=== PATIENT | female | born 2000 | race Caucasian/White ===

== ENCOUNTER → 2020-11-19 | Outpatient (CLI) | payer BC | END | disposition home or self-care (01) | LOC: LABWHC1 11:19 | PROVIDERS: ATTEND Obstetrics & Gynecology | DX: N91.2 Amenorrhea, unspecified (principal) | CPT/HCPCS: 36415; 84702 ==

== ENCOUNTER → 2021-01-11 | Outpatient (CLI) | payer OTHER ==
--- NOTE | 2021-01-11 15:02 | US ---
EXAMINATION TYPE: Transabdominal DATE OF EXAM: 01/11/2021 2:15 PM COMPARISON: NONE CLINICAL HISTORY: Z36.87 confirm dates. Pt not having any pain, a lot of vomiting. Positive ECG test. EXAM PERFORMED: Transabdominal (TA) EXAM MEASUREMENTS: GESTATIONAL AGE / DATING Physician Established: (13 weeks/3 days) EDC: 07/16/2021 Dates by LMP: (13 weeks/3 days) EDC: 07/16/2021 Dates by First Scan: No previous this is first scan Dates by Current Scan for: (13 weeks/5 days) EDC: 07/14/2021 MATERNAL ANATOMY Uterus: 12.1x9.2x9.2cm Right Ovary: Not seen Left Ovary: Very large complex mass. Shadowing, echogenic material seen within with no blood flow. 9. 6x6.1x10.5cm Post CDS / Adnexa: Left adnexa/ left ovary mass. Presence of free fluid: No Presence of corpus luteal cyst: ?? Left Presence of subchorionic bleed: No GESTATION / SURVEY CRL: 8.2 (14 weeks/1 days) Heart Rate: 161 bpm Rhythm: Normal IUP: Viable IUP Nuchal Translucency 10-14wks (normal less than 3mm): Not able to measure Age Appropriate Anatomy Date of LMP: 10/09/2020 Beta HcG (if available): N/A Single live intrauterine gestation is present as pole and gestational sac seen. Yolk sac not cl early identified. No free fluid in pelvic cul-de-sac. Right ovary not clearly identified. There is ab normal left adnexal or ovarian cystic lesion measuring 10.5 cm long axis with lobulated contour and i nternal peripheral solid component, papillary projections seen image [id number]. IMPRESSION: As above. Confirmation of single live intrauterine gestation. Mean crown-rump length 8.2 cm corresponding to 14 week 1 day old fetus. Abnormal left ovarian cystic lesion. O-RADS 4 intermediate risk. Advise referral to a gynecology onco logy specialist. Consider MRI evaluation.
== END | disposition home or self-care (01) ==
LOC: RADUSWWP 13:39
PROVIDERS: ATTEND Obstetrics & Gynecology
DX: O34.81 Maternal care for other abnormalities of pelvic organs, first trimester (principal); N83.8 Other noninflammatory disorders of ovary, fallopian tube and broad ligament; Z3A.14 14 weeks gestation of pregnancy
CPT/HCPCS: 76801

== ENCOUNTER → 2021-04-18 | Outpatient (CLI) | payer OTHER ==
[2021-04-18 15:01] LABS: HCT 36.9 % (37.2-46.3); HGB 11.6 g/dL (12.0-15.0); MCH 29.9 pg (27.0-32.0); MCHC 31.4 g/dL (32.0-37.0); MCV 95.1 fL (80.0-97.0); Mean Platelet Volume 11.4 fL (9.5-12.2); Platelet Count 226 X 10*3/uL (140-440); RBC 3.88 X 10*6/uL (4.10-5.20); WBC 8.34 X 10*3/uL (4.50-10.00)
== END | disposition home or self-care (01) ==
LOC: LABWHC1 08:37
PROVIDERS: ATTEND Obstetrics & Gynecology
DX: Z34.02 Encounter for supervision of normal first pregnancy, second trimester (principal); Z3A.00 Weeks of gestation of pregnancy not specified
CPT/HCPCS: 36415; 82950; 85027

== ENCOUNTER 2021-06-05 20:33 | Observation (INO) | payer OTHER ==
[2021-06-05 21:09] LABS: Appearance,Urine Cloudy (Clear); Bacteria,Urine Occasional /hpf; Bilirubin,Urine Negative (Negative); Blood,Urine Negative (Negative); Color,Urine Yellow; Glucose,Urine (UA) Negative (Negative); Hyaline Casts,Urine 4 /lpf (0-2); Ketones,Urine Negative (Negative); Leukocyte Esterase,Urine Negative (Negative); Mucus,Urine Rare /hpf; Nitrite,Urine Negative (Negative); Protein,Urine 3+ (Negative); RBC,Urine <1 /hpf (0-5); Specific Gravity,Urine 1.016 (1.001-1.035); Squamous Epithelial Cell,Urine 8 /hpf (0-4); Urobilinogen,Urine <2.0 mg/dL (<2.0); WBC,Urine 6 /hpf (0-5)
[2021-06-05 21:19] LABS: Basophils % (A) 0 %; Eosinophils # (A) 0.1 k/uL (0-0.7); Eosinophils % (A) 1 %; HCT 35.3 % (34.0-46.0); HGB 12.2 gm/dL (11.4-16.0); Lymphocytes # (A) 2.1 k/uL (1.0-4.8); Lymphocytes % (A) 21 %; MCH 31.6 pg (25.0-35.0); MCHC 34.5 g/dL (31.0-37.0); MCV 91.6 fL (80.0-100.0); Mean Platelet Volume 10.9; Monocytes # (A) 0.4 k/uL (0-1.0); Monocytes % (A) 4 %; Neutrophils # (A) 7.5 k/uL (1.3-7.7); Neutrophils % (A) 72 %; Platelet Count 216 k/uL (150-450); RBC 3.86 m/uL (3.80-5.40); RDW 12.9 % (11.5-15.5); WBC 10.3 k/uL (4.0-11.0)
[2021-06-05 21:28] LABS: ALT 11 U/L (4-34); AST 22 U/L (14-36); African American GFR (CKD) >90 (>60 ml/min/1.73 sqM); Blood Urea Nitrogen 20 mg/dL (7-17); LDH 486 U/L (313-618); Non-African American GFR(CKD) 88 (>60 ml/min/1.73 sqM); Uric Acid 6.8 mg/dL (3.7-7.4)
[2021-06-05 21:32] LABS: INR 0.8 (<1.2); Partial Thromboplastin Time 23.5 sec (22.0-30.0); Prothrombin Time 9.3 sec (9.0-12.0)
[2021-06-05 22:39] LABS: Creatinine,Urine Random 113.6 mg/dL
[2021-06-05 22:51] LABS: Protein/Creatinine Ratio,Urine 2.764
[2021-06-05] MEDS ORDERED: LACTATED RINGERS 1,000 ML IV SCH (23:00)
[2021-06-05] MEDS ORDERED: BETAMET ACET-BETAMETH SOD PHOS 6 MG/ML MDV IM SCH (23:00)
[2021-06-05 23:54] VITALS: TEMP 96.7
[2021-06-06] MEDS ORDERED: MAGNESIUM SULFATE-WATER PMX 4 GM in WATER FOR INJECTION 1 100ML.BAG IVPB ONE (00:51)
[2021-06-06] MEDS ORDERED: MAGNESIUM SULFATE-WATER PMX 20 GM in WATER FOR INJECTION 1 500ML.BAG IV SCH (01:00)
[2021-06-06 05:58] VITALS: RESP 17
--- NOTE | 2021-06-06 06:38 | P.HPOB ---
History of Present Illness H&P Date: 06/06/21 Chief Complaint: Lower extremity swelling, hypertension This patient is a pleasant 20-year-old 1 para 0 female estimated date of confinement 07/16/2021 estimated gestational age 34-2/7 weeks who was sent from the office yesterday for evaluation of hypertension and lower extremity swelling as well as proteinuria. Patient blood pressure in the office was 136/84 hours she had a 11 pound weight gain in 2 weeks. The office she had 2+ protein. Patient was instructed to come to labor and delivery however due to some miscommunication went to the lab for evaluation. Patient's lab work was abnormal she subsequently was instructed to come to labor and delivery. Dr. Goldberg evaluated this patient's last evening. The pressure went up overnight 150/93 and she was placed on magnesium sulfate per Dr. Goldberg. Blood work shows elevated protein creatinine ratio of 2.7 with 3+ protein. Patient denies headache. heart tones are reassuring. also was complicated by a 12 cm solid cystic left ovarian mass which was evaluated by [facility] oncology and also they referred to [facility] in the middle the . Consensus at that time was this is a benign ovarian mass and although they initially were going to do exploratory laparotomy and remove it they changed her mind and decided to continue to watch. Patient has been relatively asymptomatic from this pelvic mass. Review of Systems Genitourinary: Reports Menstruation: Reports amenorrhea Past Medical History Additional Past Medical History / Comment(s): Ovarian mass History of Any Multi-Drug Resistant Organisms: None Reported Past Surgical History: No Surgical Hx Reported Past Anesthesia/Blood Transfusion Reactions: Unable to Obtain Past Psychological History: No Psychological Hx Reported Smoking Status: Never smoker Past Alcohol Use History: None Reported Past Drug Use History: None Reported - Past Family History Father Family Medical History: No Reported History Medications and Allergies Home Medications Medication Instructions Recorded Confirmed Type Pnv No.95/Ferrous Fum/Folic AC 1 each PO DAILY 06/05/21 06/05/21 History [ Multivitamin Tablet] Allergies Allergy/AdvReac Type Severity Reaction Status Date / Time No Known Allergies Allergy Verified 06/05/21 20:47 Exam Vital Signs Temp Pulse Resp BP Pulse Ox 06/06/21 05:47 90 17 153/95 06/06/21 04:47 93 16 142/91 06/06/21 03:47 97 16 132/77 06/06/21 02:47 96 16 144/89 06/06/21 01:47 96 16 147/88 06/06/21 01:32 88 16 147/90 06/06/21 01:17 75 17 151/88 06/06/21 01:02 63 17 167/100 06/05/21 20:46 96.7 F L 72 17 156/96 99 Intake and Output 06/05/21 06/05/21 06/06/21 14:59 22:59 06:59 Intake Total 240 Output Total 335 Balance -95 Intake: Oral 240 Output: Urine 335 Other: Voiding Method Indwelling Catheter Weight 93.44 kg - OBG Physical Exam Uterus: enlarged Results blood work shows she is A positive, rubella immune, RPR nonreactive, hepatitis B is negative, ultrasounds have shown normal growth and anatomy however shown a 11.9 cm cystic solid left ovarian mass which is been followed throughout the . All was 151 with a normal three-hour gtt. Result Diagrams: 06/05/21 21:08 06/05/21 21:08 Abnormal Lab Results - Last 24 Hours (Table) 06/05/21 06/05/21 06/05/21 Range/Units 20:55 21:08 21:08 Fibrinogen 576 H (200-500) mg/dL BUN 20 H (7-17) mg/dL Urine Appearance Cloudy H (Clear) Urine Protein 3+ H (Negative) Urine WBC 6 H (0-5) /hpf Ur Squamous Epith Cells 8 H (0-4) /hpf Urine Bacteria Occasional H (None) /hpf Hyaline Casts 4 H (0-2) /lpf Urine Mucus Rare H (None) /hpf Assessment and Plan Assessment: This is a pleasant 20-year-old 1 para 0 female 34-2/7 weeks gestation with blood pressure elevations and significant proteinuria consistent with preeclampsia. Patient's been given Celestone is currently on magnesium sulfate. Patient also has a large complex left ovarian cystic mass which has been deemed benign by [facility] oncology earlier in this . Due to patient's gestational age and evolving preeclampsia feel is best to transfer at this time in the event she requires delivery. Contacted [facility] in [place] and they have agreed to take her transfer. Discussed this with the patient and her partner and they understand the clinical situation and indication for transfer. They are agreement with this treatment plan. (1) 34 weeks gestation of Current Visit: Yes Status: Acute Code(s): Z3A.34 - 34 WEEKS GESTATION OF SNOMED Code(s): 80836217 (2) Pre-eclampsia Current Visit: Yes Status: Acute Code(s): O14.90 - UNSPECIFIED PRE- ECLAMPSIA, UNSPECIFIED TRIMESTER SNOMED Code(s): 233310313 (3) Ovarian mass, left Current Visit: Yes Status: Acute Code(s): N83.8 - OTH NONINFLAMMATORY DISORD OF OVARY, FALLOP AND BROAD LIGMT SNOMED Code(s): 61864768894874105
--- NOTE | 2021-06-06 06:55 | P.DS ---
Providers Date of admission: 06/05/21 21:50 Expected date of discharge: 06/06/21 Attending physician: Satya Mendez Primary care physician: Stated None - Discharge Diagnosis(es) (1) 34 weeks gestation of Current Visit: Yes Status: Acute (2) Pre-eclampsia Current Visit: Yes Status: Acute (3) Ovarian mass, left Current Visit: Yes Status: Acute Hospital Course: Please see dictated H&P on this patient's admission. Brief summary this pleasant 20-year-old 1 para 0 female 34-2/7 weeks gestation admitted for evaluation of hypertension and proteinuria. Patient's found to have preeclampsia with significant proteinuria and some blood pressure elevations. Due to patient's prematurity I felt was best to transfer to a tertiary facility for further evaluation and monitoring and possible delivery worsening features. I did contact physicians at [facility] discussed the clinical situation with them she was accepted in transfer. Patient Condition at Discharge: Stable Plan - Discharge Summary New Discharge Prescriptions: No Action Pnv No.95/Ferrous Fum/Folic AC [ Multivitamin Tablet] 1 each PO DAILY Discharge Medication List Pnv No.95/Ferrous Fum/Folic AC [ Multivitamin Tablet] 1 each PO DAILY 06/05/21 [History] Discharge Disposition: OTHER INSTITUTION NOT DEFINED
[2021-06-06 06:58] VITALS: BP 146/93; PULSE 110
[2021-06-06 07:33] LABS: Basophils % (A) 0 %; Eosinophils % (A) 0 %; HCT 38.5 % (34.0-46.0); Lymphocytes # (A) 1.1 k/uL (1.0-4.8); Lymphocytes % (A) 8 %; MCH 31.6 pg (25.0-35.0); MCHC 33.8 g/dL (31.0-37.0); MCV 93.7 fL (80.0-100.0); Mean Platelet Volume 10.3; Monocytes # (A) 0.3 k/uL (0-1.0); Monocytes % (A) 2 %; Neutrophils # (A) 12.3 k/uL (1.3-7.7); Neutrophils % (A) 89 %; Platelet Count 219 k/uL (150-450); RBC 4.11 m/uL (3.80-5.40); RDW 12.4 % (11.5-15.5); WBC 13.8 k/uL (4.0-11.0)
[2021-06-06 07:40] LABS: INR 0.8 (<1.2); Partial Thromboplastin Time 23.6 sec (22.0-30.0); Prothrombin Time 9.2 sec (9.0-12.0)
[2021-06-06 07:45] LABS: ALT 12 U/L (4-34); AST 24 U/L (14-36); African American GFR (CKD) >90 (>60 ml/min/1.73 sqM); Blood Urea Nitrogen 20 mg/dL (7-17); LDH 577 U/L (313-618); Non-African American GFR(CKD) 83 (>60 ml/min/1.73 sqM); Uric Acid 7.3 mg/dL (3.7-7.4)
--- NOTE | 2021-06-07 07:43 | P.MSEPDOC ---
Presenting Problems - Arrival Data Date of Arrival on Unit: 06/05/21 Time of Arrival on Unit: 20:35 Mode of Transport: Ambulatory - Complaint OB-Reason for Admission/Chief Complaint: PIH Medical History - Information : 1 Para: 0 Term: 0 : 0 Abortions: Spontaneous or Elective: 0 Number of Living Children: 0 - Gestational Age Gestational Age by NICKI (wks/days): 34 Weeks and 1 Days Review of Systems - Review of Systems Constitutional: Rapid weight gain Breast: No problems ENT: No problems Cardiovascular: No problems Respiratory: No problems Gastrointestinal: No problems Genitourinary: No problems Musculoskeletal: No problems Neurological: No problems Skin: No problems Vital Signs - Temperature Temperature: 96.7 F Temperature Source: Temporal Artery Scan - Pulse Pulse Oximetery Pulse Rate: 110 Pulse Assessment Method: Automatic Cuff - Respirations Respiratory Rate: 17 Oxygen Delivery Method: Room Air - Blood Pressure Right Arm Blood Pressure: 146/93 Blood Pressure Mean: 110 Blood Pressure Source: Automatic Cuff Medical Screen Scoring - Uterine Contractions Intensity: Absent Resting: Soft to palpation - Assessment - Baby A Baseline FHR: 135 Heart Rate - NICHD Category: Category I (Normal) NST: Reactive Physician Notification - Physician Notified Physician Notified Date: 06/05/21 Physician Notified Time: 21:46 Physician: Antoinette Goldberg New Order Received: Yes - Notification Comment Comment: RN spoke with Dr. Goldberg regarding patient's NST, vital signs, CBC, PIH labs. and urinalysis. Per Dr. Goldberg, patient to be admitted to obtain a 24 hour urine sample, start IV access with LR at 20 mL/hr, repeat labs at 0600 on 06/06, regular diet, BPs every 4 hours and give patient a dose of steroids. Maternal Triage Index - Maternal Triage Index Presenting for scheduled procedure w/no complaint: No - Stat/Priority 1 Stat Priority 1: No - Urgent/Priority 2 Urgent Priority 2: No - Prompt/Priority 3 Prompt Priority 3: No - Non-Urgent/Priority 4 Non-Urgent Priority 4: No - Scheduled/Requesting Priority 5 Scheduled/Requesting Priority 5: Yes Criteria Met for Priority 5: PIH workup Disposition - Disposition OB Disposition: Admit, Observe, LDRP Suite Transferred to:: [address] Discharge Date: 06/06/21 Discharge Time: 07:30 I agree with the RN Medical Screening Exam: Yes Case reviewed; plan agreed upon as documented in EMR&OBIX.: Yes Diagnosis: UNSPECIFIED PRE-ECLAMPSIA, COMPLICATING CHILDBIRTH
== END 2021-06-06 07:39 | disposition other institution (70) ==
LOC: FBPOP 20:33 → 4FBP 21:50
PROVIDERS: ADMIT Obstetrics & Gynecology; ATTEND Obstetrics & Gynecology
DX: O15.03 Eclampsia complicating pregnancy, third trimester (principal); Z3A.34 34 weeks gestation of pregnancy; O34.83 Maternal care for other abnormalities of pelvic organs, third trimester; N83.202 Unspecified ovarian cyst, left side
CPT/HCPCS: 59025; 96365; 96375; 82570; 84156; 82565 ×2; 83615 ×2; 84450 ×2; 84460 ×2; 84520 ×2; 84550 ×2; 85025 ×2; 85384 ×2; 85610 ×2; 85730 ×2; 81001; G0463; G0378 ×2; J3475 ×2; J0702; 99215

== ENCOUNTER → 2021-06-05 | Outpatient (CLI) | payer OTHER ==
[2021-06-06 00:08] LABS: HCT 36.6 % (37.2-46.3); HGB 12.4 g/dL (12.0-15.0); MCHC 33.9 g/dL (32.0-37.0); MCV 91.5 fL (80.0-97.0); Mean Platelet Volume 13.2 fL (9.5-12.2); NRBC Per 100 WBC 0 /100 WBCS (0.0-0.0); Platelet Count 201 X 10*3/uL (140-440); RDW 12.6 % (11.5-14.5); WBC 10.17 X 10*3/uL (4.50-10.00)
[2021-06-06 00:58] LABS: African American GFR (CKD) 105.5 (60.0-200.0); Non-African American GFR(CKD) 91.1 (60.0-200.0); Uric Acid 6.9 mg/dL (2.9-7.7)
== END | disposition home or self-care (01) ==
LOC: LABWHC1 16:16
PROVIDERS: ATTEND Obstetrics & Gynecology
DX: O13.9 Gestational [pregnancy-induced] hypertension without significant proteinuria, unspecified trimester (principal); Z3A.00 Weeks of gestation of pregnancy not specified
CPT/HCPCS: 36415; 82565; 83615; 84450; 84460; 84520; 84550; 85027; 87086

== ENCOUNTER 2021-06-09 13:31 | Outpatient (CLI) | payer OTHER ==
[2021-06-09] MEDS ORDERED: LACTATED RINGERS 1,000 ML IV SCH (14:15)
[2021-06-09 14:26] LABS: Basophils % (A) 0 %; Eosinophils % (A) 0 %; HCT 36.6 % (34.0-46.0); HGB 12.7 gm/dL (11.4-16.0); Lymphocytes # (A) 1.4 k/uL (1.0-4.8); Lymphocytes % (A) 8 %; MCH 32.6 pg (25.0-35.0); MCHC 34.6 g/dL (31.0-37.0); MCV 94.5 fL (80.0-100.0); Mean Platelet Volume 10.2; Monocytes # (A) 0.8 k/uL (0-1.0); Monocytes % (A) 5 %; Neutrophils # (A) 14.3 k/uL (1.3-7.7); Neutrophils % (A) 85 %; Platelet Count 225 k/uL (150-450); RBC 3.88 m/uL (3.80-5.40); RDW 13.1 % (11.5-15.5); WBC 16.9 k/uL (4.0-11.0)
[2021-06-09 14:27] LABS: Appearance,Urine Clear (Clear); Bilirubin,Urine Negative (Negative); Blood,Urine Negative (Negative); Color,Urine Yellow; Glucose,Urine (UA) Negative (Negative); Ketones,Urine Negative (Negative); Leukocyte Esterase,Urine Negative (Negative); Mucus,Urine Rare /hpf; Nitrite,Urine Negative (Negative); PH, Urine 6.5 (5.0-8.0); Protein,Urine 2+ (Negative); RBC,Urine 1 /hpf (0-5); Specific Gravity,Urine 1.011 (1.001-1.035); Squamous Epithelial Cell,Urine <1 /hpf (0-4); Urobilinogen,Urine <2.0 mg/dL (<2.0); WBC,Urine 3 /hpf (0-5)
[2021-06-09 14:34] LABS: ALT 22 U/L (4-34); AST 47 U/L (14-36); African American GFR (CKD) >90 (>60 ml/min/1.73 sqM); Blood Urea Nitrogen 15 mg/dL (7-17); LDH 814 U/L (313-618); Non-African American GFR(CKD) >90 (>60 ml/min/1.73 sqM)
[2021-06-09 14:37] LABS: Creatinine,Urine Random 110.5 mg/dL
[2021-06-09 14:42] LABS: Protein/Creatinine Ratio,Urine 3.139
--- NOTE | 2021-06-09 15:09 | P.HPOB ---
History of Present Illness H&P Date: 06/09/21 Chief Complaint: Spontaneous rupture of membranes This is a 20-year-old female 1 para 0 with an estimated date of confinement of 07/16/2021, estimated gestational age of 34-5/7 weeks, who presented to labor and delivery triage with complaints of spontaneous rupture m embranes with clear fluid noted at approximately 1:15 PM today. She denies feeling any contractions but she does complain of lower back pain. She also complains of some nausea but no headaches or blurry vision. She does have a little bit of swelling in her lower extremities but normal reflexes. She was recently transferred to [facility] in [place] on and Thursday due to preeclampsia. She was on magnesium for a short while. She did receive 2 doses of steroids while she was there. She was discharged home on Thursday. care has been with Dr. Mendez and has been otherwise uncomplicated per patient. She has been diagnosed with a large left ovarian cyst approximately 12 cm and due to this the plan with Dr. Mendez was to perform a primary section to remove the ovarian cyst at the time of delivery. labs: Review of Systems Constitutional: Denies chills, Denies fever Eyes: denies blurred vision, denies pain Ears, nose, mouth and throat: Denies headache, Denies sore throat Cardiovascular: Denies chest pain, Denies shortness of breath Respiratory: Denies cough Gastrointestinal: Reports abdominal pain (Lower abdominal cramping) Genitourinary: Reports pelvic pain (Lower abdominal cramping), Reports Musculoskeletal: Reports low back pain Neurological: Denies numbness, Denies weakness Psychiatric: Denies anxiety, Denies depression Past Medical History Additional Past Medical History / Comment(s): Left Ovarian mass approximately 12 cm History of Any Multi-Drug Resistant Organisms: None Reported Past Surgical History: No Surgical Hx Reported Past Anesthesia/Blood Transfusion Reactions: Unable to Obtain Past Psychological History: No Psychological Hx Reported Smoking Status: Never smoker Past Alcohol Use History: None Reported Past Drug Use History: None Reported - Past Family History Father Family Medical History: No Reported History Medications and Allergies Home Medications Medication Instructions Recorded Confirmed Type Pnv No.95/Ferrous Fum/Folic AC 1 each PO DAILY 06/05/21 06/09/21 History [ Multivitamin Tablet] Allergies Allergy/AdvReac Type Severity Reaction Status Date / Time No Known Allergies Allergy Verified 06/05/21 20:47 Exam Osteopathic Statement: *. No significant issues noted on an osteopathic structural exam other than those noted in the History and Physical/Consult. Intake and Output 06/08/21 06/09/21 06/09/21 21:59 06:59 14:59 Other: Weight 93.44 kg Gen.: Well-developed well-nourished female in no acute distress HEENT: Within normal limits Heart: Regular rate and rhythm Lungs: Clear to auscultation bilaterally Abdomen: , nontender heart tones: Category 1 with no decelerations Contractions: None Cervix: Positive amnisure with clear fluid noted cervix is 4 cm/90%/-2 station Extremities: Negative Homans Results Result Diagrams: 06/09/21 14:09 06/09/21 14:09 Abnormal Lab Results - Last 24 Hours (Table) 06/09/21 06/09/21 06/09/21 Range/Units 14:09 14:09 14:13 WBC 16.9 H (4.0-11.0) k/uL Neutrophils # 14.3 H (1.3-7.7) k/uL Uric Acid 8.0 H (3.7-7.4) mg/dL AST 47 H (14-36) U/L Lactate Dehydrogenase 814 H (313-618) U/L Urine Protein 2+ H (Negative) Urine Mucus Rare H (None) /hpf Assessment and Plan (1) Spontaneous rupture of membranes Current Visit: Yes Status: Acute Code(s): RCU2411 - SNOMED Code(s): 293792135 (2) 34 weeks gestation of Current Visit: No Status: Acute Code(s): Z3A.34 - 34 WEEKS GESTATION OF SNOMED Code(s): 69186373 (3) Ovarian mass, left Current Visit: No Status: Acute Code(s): N83.8 - OTH NONINFLAMMATORY DISORD OF OVARY, FALLOP AND BROAD LIGMT SNOMED Code(s): 18989700560387720 (4) Pre-eclampsia Current Visit: No Status: Acute Code(s): O14.90 - UNSPECIFIED PRE-ECLAMPSIA, UNSPECIFIED TRIMESTER SNOMED Code(s): 629951544 Plan: Spoke with Dr. Meehan at [facility] in [place] and they have accepted transfer of the patient. They have noted that they will plan to do a vaginal delivery and she can follow up with Dr. Mendez a later date to take care of her cyst on her ovary. The patient is agreeable to this plan and is agreeing to transfer. Labs and vital signs were discussed in detail with Dr. Meehan. No magnesium or antibiotics were recommended. She will be transferred via ambulance.
[2021-06-09 15:42] VITALS: BP 156/94; PULSE 99; RESP 18; TEMP 97.9
--- NOTE | 2021-06-09 17:17 | P.MSEPDOC ---
Presenting Problems - Arrival Data Date of Arrival on Unit: 06/09/21 Time of Arrival on Unit: 13:30 Mode of Transport: Ambulatory - Complaint OB-Reason for Admission/Chief Complaint: Rule Out SROM Medical History - Information : 1 Para: 0 Term: 0 : 0 Abortions: Spontaneous or Elective: 0 Number of Living Children: 0 - Gestational Age Gestational Age by NICKI (wks/days): 34 Weeks and 5 Days - History Complications: Preeclampsia, Hx. Substance Abuse Comment: Marijuana use prior to Review of Systems - Review of Systems Constitutional: No problems Breast: No problems ENT: No problems Cardiovascular: No problems Respiratory: No problems Gastrointestinal: No problems Genitourinary: No problems Musculoskeletal: No problems Neurological: No problems Skin: No problems Vital Signs - Temperature Temperature: 97.9 F Temperature Source: Temporal Artery Scan - Pulse Right Sitting Brachial Pulse Rate: 99 Pulse Assessment Method: Automatic Cuff - Respirations Respiratory Rate: 18 Oxygen Delivery Method: Room Air O2 Sat by Pulse Oximetry: 99 - Blood Pressure Left Arm Sitting Blood Pressure: 156/94 Blood Pressure Mean: 114 Blood Pressure Source: Automatic Cuff Medical Screen Scoring - Cervical Exam Dilation (cm): 4 Effacement (%): 80 Station: -2 Membranes: Ruptured - Assessment - Baby A Baseline FHR: 125 Heart Rate - NICHD Category: Category I (Normal) NST: Reactive Physician Notification - Physician Notified Physician Notified Date: 06/09/21 Physician Notified Time: 14:05 Physician: Rosaura Juarez Order Received: Yes - Notification Comment Comment: Transfer to [facility], via EMS, IV LR hanging, 600ml left to infuse. Maternal Triage Index - Maternal Triage Index Presenting for scheduled procedure w/no complaint: No - Stat/Priority 1 Stat Priority 1: No - Urgent/Priority 2 Urgent Priority 2: Yes Provider Notified: Rosaura Juarez Provider Notified Time: 14:05 Criteria Met for Priority 2: Dr Juarez to bedside, pt transferred to [facility], SROM & Preeclampsia Disposition - Disposition OB Disposition: Transfer to other dept./facility Transferred to:: [facility] Discharge Date: 06/09/21 Discharge Time: 15:40 I agree with the RN Medical Screening Exam: Yes Case reviewed; plan agreed upon as documented in EMR&OBIX.: Yes Diagnosis: LABOR WITHOUT DELIVERY, THIRD TRIMESTER Additional Diagnoses: Preeclampsia
== END 2021-06-09 15:40 | disposition other institution (70) ==
LOC: FBPOP 13:31
PROVIDERS: ATTEND Obstetrics & Gynecology
DX: O60.03 Preterm labor without delivery, third trimester (principal); O14.93 Unspecified pre-eclampsia, third trimester; O42.913 Preterm premature rupture of membranes, unspecified as to length of time between rupture and onset of labor, third trimester; O99.891 Other specified diseases and conditions complicating pregnancy; N83.8 Other noninflammatory disorders of ovary, fallopian tube and broad ligament; Z3A.34 34 weeks gestation of pregnancy
CPT/HCPCS: 59025; 96360; 84112; 82570; 84156; 82565; 83615; 84450; 84460; 84520; 84550; 85025; 81001; G0463; 96361; 99215

== ENCOUNTER → 2021-08-01 | Outpatient (CLI) | payer OTHER ==
[2021-08-01 22:59] LABS: African American GFR (CKD) 93.9 (60.0-200.0); Anion Gap 12.5 mmol/L (10.00-18.00); Calcium 9.6 mg/dL (8.7-10.3); Cancer Antigen 125 11.5 U/mL (0.0-30.1); Carbon Dioxide 23.5 mmol/L (20.0-27.5); Potassium 4.3 mmol/L (3.5-5.5)
[2021-08-01 23:06] LABS: Basophils # (A) 0.06 X 10*3/uL (0.00-0.10); Basophils % (A) 0.9 %; Eosinophils # (A) 0.12 X 10*3/uL (0.04-0.35); Eosinophils % (A) 1.7 %; HCT 40.9 % (37.2-46.3); HGB 13.2 g/dL (12.0-15.0); Immature Grans, Automated 0.3 %; Lymphocytes # (A) 2.45 X 10*3/uL (0.90-5.00); Lymphocytes % (A) 35.7 %; MCH 29.4 pg (27.0-32.0); MCHC 32.3 g/dL (32.0-37.0); MCV 91.1 fL (80.0-97.0); Mean Platelet Volume 10.8 fL (9.5-12.2); Monocytes # (A) 0.46 X 10*3/uL (0.20-1.00); Monocytes % (A) 6.7 %; NRBC Per 100 WBC 0 /100 WBCS (0.0-0.0); Neutrophils # (A) 3.75 X 10*3/uL (1.80-7.70); Neutrophils % (A) 54.7 %; Platelet Count 303 X 10*3/uL (140-440); RBC 4.49 X 10*6/uL (4.10-5.20); RDW 12.3 % (11.5-14.5); WBC 6.86 X 10*3/uL (4.50-10.00)
== END | disposition home or self-care (01) ==
LOC: LABPAT 15:51
PROVIDERS: ATTEND Obstetrics & Gynecology
DX: Z01.812 Encounter for preprocedural laboratory examination (principal); N83.8 Other noninflammatory disorders of ovary, fallopian tube and broad ligament
CPT/HCPCS: 80048; 85025; 86304

== ENCOUNTER 2021-08-08 06:16 | Inpatient (IN) | payer BC, OTHER ==
[2021-08-06 16:14] VITALS: BMI 29.8
--- NOTE | 2021-08-07 19:19 | P.HPOB ---
History of Present Illness H&P Date: 08/07/21 Chief Complaint: Large left ovarian cystic mass This patient is a pleasant 20-year-old 1 para 1 female who most recently had a vaginal delivery on June 09 of this year. Patient's was complicated by a large left ovarian cystic mass that was approximately 10-11 cm. Patient was seen by [facility] oncology because this mass appeared suspicious throughout the and initially was scheduled for removal during the middle of her however after discussion with maternal medicine the changed her mind and recommended removal after delivery. Patient has had CA-125 2 that were normal. Most recent follow-up ultrasound on July 30 shows it is still 10 cm with a echogenic and papillary appearance. Although this is most likely consistent with a dermoid cyst, [facility] oncology could not guarantee that it was not a ovarian neoplasm including a low malignant potential tumor versus david neoplasm. The fact that the cystic mass has not changed appreciably in the last 6 months indicates is most likely benign. Patient now presents for exploratory laparotomy with removal of this mass. Patient currently is without pain or discomfort. Review of Systems Genitourinary: Reports as per HPI Past Medical History Additional Past Medical History / Comment(s): Post 2 months, hx preeclampsia., Left Ovarian mass approximately 12 cm., states current UTI . History of Any Multi-Drug Resistant Organisms: None Reported Past Surgical History: No Surgical Hx Reported Past Anesthesia/Blood Transfusion Reactions: Unable to Obtain Additional Past Anesthesia/Blood Transfusion Reaction / Comment(s): NO ANESTHESIA HX. Past Psychological History: No Psychological Hx Reported Smoking Status: Never smoker Past Alcohol Use History: None Reported Additional Past Alcohol Use History / Comment(s): QUIT SMOKING WHEN , SMOKED FOR 1 YEAR. Past Drug Use History: Marijuana Additional Drug Use History / Comment(s): NO CURRENT MARIJUANA USE - Past Family History Father Family Medical History: No Reported History Medications and Allergies Home Medications Medication Instructions Recorded Confirmed Type Antibiotic (Unknown Name) 1 dose PO BID 08/06/21 History Allergies Allergy/AdvReac Type Severity Reaction Status Date / Time No Known Allergies Allergy Verified 08/06/21 15:51 Exam - OBG Physical Exam Abdomen: bowel sounds normal, no diffuse tenderness, no bruit present, no guarding noted, no hepatomegaly, no splenomegaly, no mass Vagina: normal moisture, no discharge Cervix: no lesion, no discharge Adnexa: left: mass Results Transvaginal and abdominal ultrasound shows the left ovary to be approximately 10 cm most completely encompassed by a 9.8 cm echogenic mass with a solid component of 5.3 x 4.4 cm. CA-125 was normal. The right ovary appears normal. Assessment and Plan Assessment: This is a pleasant 20-year-old 1 para 1 female with approximately 10 cm left ovarian cystic mass with solid components and normal CA-125. Patient understands that this time I believe this is a dermoid cyst however there is a possibility it could be a low malignant potential tumor or other ovarian neoplasm. Plan is exploratory laparotomy and most likely will proceed with left oophorectomy possible salpingectomy. If it appears this could be removed without spillage. Consider a ovarian cystectomy but based on the imaging appears to ovaries completely encompassed by the mass. Patient understands the risks of the surgery and risks of infection, bleeding, possible injury to bowel, bladder, vessels, and other organs. She also understands risk of DVT and pulmonary embolism. I did discuss the fact that if we remove the left tube and ovary she still would have future fertility. There is not appear to be any involvement of the right ovary. All the patient's questions are answered and a written consent is obtained. (1) Ovarian mass, left Status: Acute Code(s): N83.8 - OTH NONINFLAMMATORY DISORD OF OVARY, FALLOP AND BROAD LIGMT SNOMED Code(s): [id number]
[~2021-08-08 06:16] MED LIST: DEXAMETHASONE SOD PHOSPHATE 4 MG/ML 1 ML VIAL IV ONE; HYDROmorphone 0.5 MG/0.5 ML SYRINGE IVP PRN; LACTATED RINGERS 1,000 ML IV SCH; ONDANSETRON 4 MG/2 ML VIAL IVP ONE
[2021-08-08] MEDS ORDERED: MIDAZOLAM 2 MG/2 ML VIAL IV ONE (07:49)
[2021-08-08] MEDS ORDERED: GLYCOPYRROLATE 0.2 MG/ML 2 ML VIAL ONE (07:54)
[2021-08-08] MEDS ORDERED: ROCURONIUM 10 MG/ML (5 ML VIAL) IV ONE (07:54)
[2021-08-08] MEDS ORDERED: PROPOFOL 10 MG/ML 20 ML VIAL IV ONE (07:54)
[2021-08-08] MEDS ORDERED: MORPHINE SULFATE (PF) 0.3 MG/0.3 ML SYR ONE (07:54)
[2021-08-08] MEDS ORDERED: fentaNYL (PF) 50 MCG/ML 2 ML AMP ONE (07:54)
[2021-08-08] MEDS ORDERED: SUCCINYLCHOLINE CHLORIDE 100 MG/5 ML SYR IV ONE (07:54)
[2021-08-08] MEDS ORDERED: LIDOCAINE 2% INJ 20 MG/ML (2 ML VIAL) ONE (07:54)
[2021-08-08] MEDS ORDERED: NEOSTIGMINE 1 MG/ML 10 ML VIAL ONE (07:54)
[2021-08-08] MEDS ORDERED: LACTATED RINGERS 1,000 ML IV ONE ×2 (08:20)
--- NOTE | 2021-08-08 08:27 | P.ANPRN ---
Procedure Note - Anesthesia - Epidural/Spinal Spinal Time Out Performed: Yes Date of Procedure: 08/08/21 Procedure Start Time: 07:48 Procedure Stop Time: 07:56 Location of Patient: PreOp Indication: Acute Post-Operative Pain, Requested by Surgeon Sedation Type: Sedate with meaningful contact maintained Preparation: Sterile Prep Number of Attempts: 1 Position: Sitting Catheter: None Needle Guage: 25 (Kashif) Narrative: Clear flow of CSF noted, 0.3mg of duramorph and 25mcg of fentanyl inected intrathecally. Blood Aspirated: No Pain Paresthesia on Injection Noted: No Events: Uneventful and Well Tolerated
[2021-08-08] MEDS ORDERED: NALOXONE 0.4 MG/ML 1 ML VIAL IV PRN (08:34)
[2021-08-08] MEDS ORDERED: diphenhydrAMINE 50 MG/ML 1 ML VIAL IVP PRN (08:34)
--- NOTE | 2021-08-08 08:51 | P.OP ---
Date of Procedure: 08/08/21 Preoperative Diagnosis: Large left ovarian cystic mass Postoperative Diagnosis: Same Procedure(s) Performed: Exploratory laparotomy and left oophorectomy Anesthesia: LIDA Surgeon: Satya Mendez Program Professional #1: Antoinette Goldberg Estimated Blood Loss (ml): 30 Pathology: other (Left ovary/cystic mass) Condition: stable Disposition: PACU Indications for Procedure: Please see dictated H&P for intimate details of this patient's admission. Brief summary this pleasant 20-year-old 1 para 1 female with a 10 cm complex cystic mass of the left ovary. Patient's had serial ultrasounds, evaluation by [facility] oncology and recommendations for removal. At this point it did appear benign. I discussed route of removal we elected proceed with exploratory laparotomy and possible left ovarian cystectomy/left oophorectomy. Patient understands the surgery and risks and risks of infection, bleeding, possible injury bowel, bladder, vessels, and other organs. All the patient's questions are answered and written consent is obtained. Operative Findings: This patient had a 10 cm cystic solid mass left ovary appeared benign grossly. Right tube and ovary were completely normal left tube was normal, uterus appeared normal, upper abdomen appeared growth grossly normal Description of Procedure: This patient is taken to the operating room after Duramorph spinal and laid in the supine position. She subsequent undergoes general endotracheal anesthesia without incident. After the appropriate timeout, she has an abdominal prep and drape. Barger catheter is placed to straight drain as well. Scalpels and taken a Pfannenstiel skin incision is made. A second scalpel is taken down the fascia and the fascia scored with a knife. Fascial incision extended bilaterally using the Wadsworth scissors. Fascia is then dissected off the rectus muscles sharply. Rectus muscles are the peritoneum identified and entered sharply. Peritoneal incision extended superior and inferior without difficulty. Milvia retractor bladder blade is placed at this time. Using saline solution I do pelvic washings and this is sent off separately. The left ovary is then examined and lifted up out of the pelvis. Appears to be about 10 cm mostly cystic with some solid areas. Grossly appears benign. The right tube and ovary appear completely normal. The left fallopian tube appears normal. This time I inspect the cyst appears to encompass most of the ovary I feel is best to proceed with removal of the entire left ovary. 2 Heaneys are placed across the pedicle. Carefully the left ovary was excised intact without any spillage. This is done with 0 Vicryl Koffi stitches. Free ties placed as well for added hemostasis. Excellent hemostasis is noted. Copious irrigation is done. Final inspection shows all be hemostatic. This time the Finley retractor is removed. Final inspection shows good hemostasis. Peritoneum was identified with hemostats. Is then closed using 0 Vicryl running fashion. Rectus muscles reapproximated Vicryl interrupted fashion. Fascial incision closed using 0 PDS. Fascial incision is intact and hemostatic. Subcutaneous tissues and reapproximated using 3-0 Vicryl. [place] are used to close the skin in good reapproximation is noted. Sterile dressing is applied. Patient is awakened from anesthesia and taken recovery room in satisfactory condition. All counts correct 3. There are no complications.
[2021-08-08] MEDS ORDERED: SULFAMETHOX-TMP 800-160MG 1 EACH TAB PO SCH (09:00)
[2021-08-08] MEDS ORDERED: SIMETHICONE 80 MG CHEWABLE PO PRN (09:42)
[2021-08-08] MEDS ORDERED: Acetaminophen-Codeine 300-30mg TAB PO PRN (09:42)
[2021-08-08] MEDS ORDERED: IBUPROFEN 600 MG TAB PO PRN (09:42)
[2021-08-08] MEDS ORDERED: ONDANSETRON 4 MG/2 ML VIAL IVP PRN (09:42)
[2021-08-08] MEDS ORDERED: KETOROLAC 15 MG/ML 1 ML VIAL IVP PRN (09:42)
[2021-08-08] MEDS: LACTATED RINGERS 1,000 ML IV SCH ×2 (10:12→19:48)
[2021-08-08] MEDS: SENNOSIDES-DOCUSATE SODIUM 1 EACH TAB PO SCH ×2 (10:13→22:10)
[2021-08-08 10:32] LABS: Basophils % (A) 0 %; Eosinophils % (A) 0 %; HCT 35.6 % (34.0-46.0); HGB 11.5 gm/dL (11.4-16.0); Lymphocytes # (A) 0.6 k/uL (1.0-4.8); Lymphocytes % (A) 10 %; MCH 29.7 pg (25.0-35.0); MCHC 32.4 g/dL (31.0-37.0); MCV 91.8 fL (80.0-100.0); Mean Platelet Volume 8.6; Monocytes # (A) 0.3 k/uL (0-1.0); Monocytes % (A) 4 %; Neutrophils % (A) 83 %; Platelet Count 196 k/uL (150-450); RBC 3.88 m/uL (3.80-5.40); RDW 12.5 % (11.5-15.5)
[2021-08-08 12:55] VITALS: RESP 16
--- NOTE | 2021-08-09 05:59 | P.PN ---
Progress Note - Text Progress Note Date: 08/09/21 Postoperative day #1. Patient is resting without complaints. Vital signs are stable she's afebrile. Incision is intact and dry. Patient's tolerance clear liquids and some solid food. She is ambulating and urinating without difficulty. Plan today is to continue routine postoperative care advanced her diet more and if she is doing well and potentially go home later today otherwise tomorrow morning.
[2021-08-09 06:49] VITALS: TEMP 97.8
[2021-08-09] MEDS ORDERED: ACETAMINOPHEN TAB 325 MG TAB PO PRN (08:01)
[2021-08-09] MEDS: SENNOSIDES-DOCUSATE SODIUM 1 EACH TAB PO SCH (10:02)
[2021-08-09 10:12] VITALS: BP 104/62; PULSE 52
--- NOTE | 2021-08-09 11:04 | P.PN ---
Progress Note - Text Progress Note Date: 08/09/21 Postop day 1 from ovarian cystecomy received intrathecal morphine for postop pain control. Patient pain is well controlled with visual analog score of 3/10. No nausea vomiting, weakness or numbness in the legs or headache reported by the patient. Mild itching present. No complications from spinal morphine.
--- NOTE | 2021-08-09 12:27 | P.PN ---
Progress Note - Text Progress Note Date: 08/09/21 She is feeling well wishes to go home. Vital signs are stable she's afebrile. She's tolerating regular diet, urinating, ambulating without difficulty. Plan is to discharge home follow up with Thursday afternoon for staple removal. Call me if any fevers, chills, etc.
--- NOTE | 2021-08-09 12:34 | P.DS ---
Providers Date of admission: 08/08/21 06:16 Expected date of discharge: 08/09/21 Attending physician: Satya Mendez Primary care physician: Stated None - Discharge Diagnosis(es) (1) Ovarian mass, left Current Visit: No Status: Acute Hospital Course: Please see dictated H&P and operative note on this patient's admission. Brief summary this pleasant 20-year-old 1 para 1 female admitted for exploratory laparotomy for a large left ovarian cystic mass. Patient is admitted she undergoes above-named surgery. Postoperative and 1 she is doing very well she is ambulating and urinating without difficulty she's tolerating regular diet. Patient's felt be stable for discharge home follow up with me on Thursday for staple removal and incision check. Procedures: Exploratory laparotomy and left oophorectomy Patient Condition at Discharge: Good Plan - Discharge Summary Discharge Rx Participant: No New Discharge Prescriptions: New Ibuprofen [Motrin] 600 mg PO Q6HR PRN #40 tab PRN Reason: Mild Discomfort Acetaminophen-Codeine 300-30mg [Tylenol w/codeine #3] 2 each PO Q6HR PRN #24 tab PRN Reason: Severe Pain No Action Sulfamethoxazole/Trimethoprim [Sulfamethoxazole-Tmp Ds Tablet] 1 tab PO BID Discharge Medication List Sulfamethoxazole/Trimethoprim [Sulfamethoxazole-Tmp Ds Tablet] 1 tab PO BID 08/08/21 [History] Acetaminophen-Codeine 300-30mg [Tylenol w/codeine #3] 2 each PO Q6HR PRN #24 tab 08/09/21 [Rx] Ibuprofen [Motrin] 600 mg PO Q6HR PRN #40 tab 08/09/21 [Rx] Follow up Appointment(s)/Referral(s): Satya Mendez MD [STAFF PHYSICIAN] - 08/12/21 3:00 pm (Please come to the office Thursday after 3 for staple removal. Also see me in approximately 3 weeks for another incision check) Patient Instructions/Handouts: Exploratory Laparotomy (DC) Activity/Diet/Wound Care/Special Instructions: No heavy lifting or strenuous activity for 6 weeks. No intercourse or anything per vagina for 6 weeks. Please call if any fever, chills, excessive vaginal bleeding, and/or abdominal pain Discharge Disposition: HOME SELF-CARE
== END 2021-08-09 13:00 | disposition home or self-care (01) | DRG 742 ==
LOC: 2ORMAIN 06:16 → 4FBP 09:03
PROVIDERS: ADMIT Obstetrics & Gynecology; ATTEND Obstetrics & Gynecology
PROC: 0UT10ZZ Resection of Left Ovary, Open Approach (ICD-10-PCS; principal; 2021-08-08 07:30)
DX: N83.8 Other noninflammatory disorders of ovary, fallopian tube and broad ligament (principal); N39.0 Urinary tract infection, site not specified; Z87.891 Personal history of nicotine dependence
CPT/HCPCS: 84702; 85025; 86850; 86900; 86901; 88108; 88305; 88307

== ENCOUNTER 2023-09-24 11:24 | Outpatient (CLI) | payer BC, OTHER ==
[2023-09-24 13:09] LABS: Amorphous Sediment,Urine Rare /hpf; Appearance,Urine Cloudy (Clear); Bacteria,Urine Rare /hpf; Bilirubin,Urine Negative (Negative); Blood,Urine Negative (Negative); Color,Urine Yellow; Glucose,Urine (UA) Negative (Negative); Ketones,Urine Negative (Negative); Leukocyte Esterase,Urine Small (Negative); Mucus,Urine Few /hpf; Nitrite,Urine Negative (Negative); PH, Urine 6.5 (5.0-8.0); Protein,Urine Trace (Negative); RBC,Urine 2 /hpf (0-5); Specific Gravity,Urine 1.021 (1.001-1.035); Squamous Epithelial Cell,Urine 8 /hpf (0-4); Urobilinogen,Urine <2.0 mg/dL (<2.0); WBC,Urine 3 /hpf (0-5)
[2023-09-24 13:43] VITALS: BP 129/66; PULSE 123; RESP 17; TEMP 97.1
--- NOTE | 2023-10-19 16:06 | P.MSEPDOC ---
Presenting Problems - Arrival Data Date of Arrival on Unit: 09/24/23 Time of Arrival on Unit: 11:24 Mode of Transport: Ambulatory - Complaint OB-Reason for Admission/Chief Complaint: Possible Onset of Labor Comment: pt presents to triage for lower back pain and abd cramping, rating pain at 8/10, pt has hx of delivery at 34 5/7 weeks with preeclampsia with 1st Medical History - Information : 2 Para: 1 Term: 0 : 1 Abortions: Spontaneous or Elective: 0 Number of Living Children: 1 - Gestational Age Gestational Age by NICKI (wks/days): 36 Weeks and 1 Days Review of Systems - Review of Systems Constitutional: No problems Breast: No problems ENT: No problems Cardiovascular: No problems Respiratory: No problems Gastrointestinal: No problems Genitourinary: No problems Musculoskeletal: No problems Neurological: No problems Skin: No problems Vital Signs - Temperature Temperature: 97.1 F Temperature Source: Temporal Artery Scan - Pulse Apical Pulse Rate: 123 Pulse Assessment Method: Automatic Cuff - Respirations Respiratory Rate: 17 Oxygen Delivery Method: Room Air O2 Sat by Pulse Oximetry: 100 - Blood Pressure Right Arm Blood Pressure: 129/66 Blood Pressure Mean: 87 Blood Pressure Source: Automatic Cuff Medical Screen Scoring - Cervical Exam Dilation (cm): 1 Effacement (%): 50 Station: -2 Membranes: Intact - Uterine Contractions Frequency From (mins): 2 Frequency To (mins): 3 Duration From (seconds): 40 Duration To (seconds): 70 Intensity: Mild Resting: Soft to palpation - Assessment - Baby A Baseline FHR: 130 Heart Rate - NICHD Category: Category I (Normal) NST: Reactive Physician Notification - Physician Notified Physician Notified Date: 09/24/23 Physician Notified Time: 13:08 New Order Received: Yes - Notification Comment Comment: pt's GA 36 1/7, 1st baby delivered @ 34 5/7 due to spontaneous labor and preeclampsia, none with this , no cervical change after an hour, she is scheduled for induction @ [facility] with Dr. Ocampo on 10/13, reactive nst, pt hydrated with 2 glasses of water, still having contractions, but no cervical change, pulse back to 90-115, ua obtained, pt has scheduled appt with Dr. Ocampo on Thursday Maternal Triage Index - Maternal Triage Index Presenting for scheduled procedure w/no complaint: No - Stat/Priority 1 Stat Priority 1: No - Urgent/Priority 2 Urgent Priority 2: No - Prompt/Priority 3 Prompt Priority 3: Yes Criteria Met for Priority 3: pt presents to triage for lower back pain and abd cramping, rating pain at 8/10, pt has hx of delivery at 34 5/7 weeks with preeclampsia with 1st Disposition - Disposition OB Disposition: Triage, Discharge to home, Written follow up instructions reviewed Discharge Date: 09/24/23 Discharge Time: 13:20 I agree with the RN Medical Screening Exam: Yes Physician's MSE Comment: I have neither seen nor examined the patient Case reviewed; plan agreed upon as documented in EMR&OBIX.: Yes Diagnosis: MATERNAL CARE FOR PROBLEM, UNSP, THIRD * DO NOT USE *
== END 2023-09-24 13:20 | disposition home or self-care (01) ==
LOC: FBPOP 11:24
PROVIDERS: ATTEND Obstetrics & Gynecology
DX: O47.03 False labor before 37 completed weeks of gestation, third trimester (principal); Z3A.36 36 weeks gestation of pregnancy
CPT/HCPCS: 59025; 81001; 99213